=== PATIENT | male | born 1955 ===

== ENCOUNTER 2017-06-08 07:50 | Day surgery (SDC) | payer SELFPAY ==
[2016-10-30 12:52] VITALS: BMI 27.1
--- NOTE | 2017-06-08 09:15 | CP.SDSHP ---
Same Day Surgery H & P - History Proposed Procedure: EGD with cryo Pre-Op Diagnosis: Dysplastic barretts - Previous Medical/Surgical History Previous Surgical History: EGD with cryo - Allergies Allergies: Allergies No Known Allergies Allergy (Verified 09/03/16 08:47) - Physical Exam General Appearance: nl Vital Signs: Vital Signs 06/08/17 08:53 Temperature 98.0 F Pulse Rate 88 Respiratory 20 Rate Blood Pressure 129/71 O2 Sat by Pulse 97 Oximetry Mental Status: Alert & Oriented x3 Neuro: WNL Heart: WNL Lungs: WNL GI: WNL - {Optional Preform as Required} Abdomen: WNL - Impression Impression: Barretts with dysplasia Pt. Evaluated Today:Candidate for Anesthesia & Procedure: Yes - Date & Time Date: 06/08/17 Time: 09:15 Short Stay Discharge - Short Stay Discharge Admitting Diagnosis/Reason for Visit: CAVAZOS'S ESOPHAGUS WITHOUT DYSPLASIA Disposition: HOME/ ROUTINE
[2017-06-08] MEDS ORDERED: Propofol 10 mg/ml Inj (20 ML) ONE ×2 (09:21)
[2017-06-08] MEDS ORDERED: Lactated Ringer's 500 ML IV SCH (09:30)
[2017-06-08] MEDS ORDERED: Midazolam 2 MG/2 ML VIAL ONE (09:42)
[2017-06-08] MEDS ORDERED: Lactated Ringer's 500 ML IV ONE (10:05)
[2017-06-08 10:50] VITALS: TEMP 97.7
[2017-06-08 16:00] VITALS: BP 132/81; PULSE 70; RESP 20; O2SAT 98
== END 2017-06-08 15:45 | disposition home or self-care (01) ==
LOC: C.ENDO 07:50
PROVIDERS: ATTEND Internal Medicine
DX: K22.70 Barrett's esophagus without dysplasia (principal); K29.70 Gastritis, unspecified, without bleeding; K44.9 Diaphragmatic hernia without obstruction or gangrene
CPT/HCPCS: 43243; 82948; J2250; J2704; J3010; J7120

== ENCOUNTER 2018-05-05 14:53 | Emergency (ER) | payer OTHER ==
[2018-05-05 14:53] VITALS: BMI 28.0
[2018-05-05] MEDS ORDERED: Sodium Chloride 0.9% 1,000 ML IV ONE (16:45)
[2018-05-05] MEDS ORDERED: Iohexol 240 (50 ml) PO STA (16:45)
--- NOTE | 2018-05-05 16:45 | C.PDOC ---
History Of Present Illness <Alana Melgar - Last Filed: 05/05/18 18:49> <Scooby Youngblood - Last Filed: 05/05/18 20:37> 62-year-old male with PMHx of Herrera's esophagus s/p EGD in 02/2018 presents to the ER complaining of intermittent abdominal pain over the past month and a half. Patient also notes his abdomen occasionally feels "hard" with questionable bloating. Last episode of pain and "hard abdomen" was this morning , currently patient reports improvement. Of note, patient recently had a colonoscopy with his GI specialist Dr. Bowen, showing polyps. Patient otherwise denies fever, chills, vomiting, weight loss, change in bowel habits, or urinary symptoms. (Alana Melgar) History Per: Patient History/Exam Limitations: no limitations Onset/Duration Of Symptoms: Intermittent Episodes Current Symptoms Are (Timing): Better Location Of Pain/Discomfort: LLQ <Alana Melgar - Last Filed: 05/05/18 18:49> <Scooby Youngblood - Last Filed: 05/05/18 20:37> Time Seen by Provider: 05/05/18 16:17 Chief Complaint (Nursing): Abdominal Pain Past Medical History Reviewed: Historical Data, Nursing Documentation, Vital Signs - Medical History PMH: Diabetes, Fractures (LEFT ANKLE), Gastritis, HTN, Hypercholesterolemia, Pneumonia Denies: Chronic Kidney Disease Other PMH: Herrera's esophagus Surgical History: Appendectomy, Endoscopy Denies: Pacemaker Family History: States: Unknown Family Hx - Social History Hx Tobacco Use: No Hx Alcohol Use: Yes (OCCASIONAL WINE) Hx Substance Use: No - Immunization History Hx Tetanus Toxoid Vaccination: No Hx Influenza Vaccination: Yes Hx Pneumococcal Vaccination: Yes <Alana Melgar - Last Filed: 05/05/18 18:49> Vital Signs: Last Vital Signs Temp 98.9 F 05/05/18 18:55 Pulse 66 05/05/18 18:55 Resp 18 05/05/18 18:55 BP 114/68 05/05/18 18:55 Pulse Ox 96 05/05/18 18:55 - [facility] Procedures CLOSED ENDOSCOPIC BIOPSY OF LARGE INTESTINE (10/18/14) ENDO RECTUM POLYPECTOMY (10/18/14) ENDOSC POLYPECTOMY OF LG INTEST (10/18/14) ENDOSCOPIC BIOPSY OF RECTUM (10/18/14) HEMORRHOID PROCEDURE NEC (08/10/14) Review Of Systems Except As Marked, All Systems Reviewed And Found Negative. Constitutional: Negative for: Fever, Chills, Weight loss Gastrointestinal: Positive for: Abdominal Pain. Negative for: Nausea, Vomiting , Diarrhea, Constipation, Other (rectal bleeding) Genitourinary: Negative for: Dysuria, Frequency, Incontinence <Alnaa Melgar - Last Filed: 05/05/18 18:49> Physical Exam - Physical Exam Appears: Non-toxic, No Acute Distress Skin: Normal Color, Warm Head: Atraumatic, Normacephalic Eye(s): bilateral: Normal Inspection, PERRL, EOMI Nose: Normal Oral Mucosa: Moist Neck: Normal ROM, Supple Chest: Symmetrical, No Deformity Cardiovascular: Rhythm Regular, No Murmur Respiratory: Normal Breath Sounds, No Accessory Muscle Use, Other (NARD) Gastrointestinal/Abdominal: Soft, Tenderness (mild LLQ tenderness), No Distention, No Guarding, No Rebound Back: Normal Inspection Extremity: Bilateral: Atraumatic, Normal Color And Temperature, Normal ROM Pulses: Left Dorsalis Pedis: Normal, Right Dorsalis Pedis: Normal Neurological/Psych: Oriented x3, Normal Speech, Normal Cranial Nerves Gait: Steady <Alana Melgar - Last Filed: 05/05/18 18:49> ED Course And Treatment - Laboratory Results Result Diagrams: 05/05/18 16:51 05/05/18 16:51 O2 Sat by Pulse Oximetry: 97 (RA) Pulse Ox Interpretation: Normal <Alana Melgar - Last Filed: 05/05/18 18:49> - Laboratory Results Result Diagrams: 05/05/18 16:51 05/05/18 16:51 Pulse Ox Interpretation: Normal Reevaluation Time: 20:32 Reassessment Condition: Improved <Scooby Youngblood - Last Filed: 05/05/18 20:37> Progress - Data Reviewed Data Reviewed: Lab, Diagnostic imaging, Old records <Alana Melgar - Last Filed: 05/05/18 18:49> <Scooby Youngblood - Last Filed: 05/05/18 20:37> - Re-Evaluation Re-evaluation Note: 05/05/18 18:30 APPEARS COMFORTABLE NAD. PENDING CT. (Alana Melgar) Medical Decision Making <RamónAlana - Last Filed: 05/05/18 18:49> <Scooby Youngblood - Last Filed: 05/05/18 20:37> Medical Decision Making: Initial Impression: 62 y/o M with Abdominal Pain Time: 16:45 Initial Plan: --Blood work --Urinalysis --IV fluids --CT A/P with PO & IV contrast (Alana Melgar) Upon provider reevaluation patient is feeling better, is medically stable, and requires no further treatment in the ED at this time. Patient will be discharged home with Rx for flagyl . Counseling was provided and all questions were answered regarding diagnosis and need for follow up with the referred clinic. There is agreement to discharge plan. Return if symptoms persist or worsen. (Scooby Youngblood) Disposition - Disposition Disposition Time: 19:00 <Alana Melgar - Last Filed: 05/05/18 18:49> Counseled Patient/Family Regarding: Studies Performed, Diagnosis, Need For Followup, Rx Given <Scooby Youngblood - Last Filed: 05/05/18 20:37> - Disposition Referrals: [facility] at [facility] [Outside] [facility] [Outside] Disposition: HOME/ ROUTINE Condition: FAIR Additional Instructions: Please return if symptoms recur. Will also need a repeat scan in 3 years for your 3 cm infrarenal aortic aneurysm Prescriptions: Metronidazole [Flagyl] 500 mg PO TID #21 tablet Instructions: Acute Abdomen (Belly Pain), Adult (DC), Abdominal Hernia (DC), Aortic Aneurysm (DC) Forms: [facility] (Icelandic) - Clinical Impression Clinical Impression: Abdominal pain, Ventral hernia, Aneurysm of infrarenal abdominal aorta - Scribe Statement The provider has reviewed the documentation as recorded by the Scribe <Alana Melgar - Last Filed: 05/05/18 18:49> <Scooby Youngblood - Last Filed: 05/05/18 20:37> - Scribe Statement Beth Ortega (Alana Melgar) Provider Attestation: All medical record entries made by the Scribe were at my direction and personally dictated by me. I have reviewed the chart and agree that the record accurately reflects my personal performance of the history, physical exam, medical decision making, and the department course for this patient. I have also personally directed, reviewed, and agree with the discharge instructions and disposition. (Alana Melgar) Physician Patient Turnover Patient Signed Over To: Scooby Youngblood Handoff Comments: fu ct, dispo <Alana Melgar - Last Filed: 05/05/18 18:49> Addendum <Alana Melgar - Last Filed: 05/05/18 18:49> <Scooby Youngblood - Last Filed: 05/05/18 20:37> Addendum: 05/05/18 20:30 Name: GUILLERMO ZHENG Age: 62Years M Date: 05/05/2018 Requesting Physician: Alana Melgar : 1955 [employer] Procedure Ordered As Accession Number of Images CT ABDOMEN/PELVIS W CT ABD PELVIS PO IV CONTRAST [id number] J 531 Provided Clinical History: abd pain LLQ EXAM: CT Abdomen and Pelvis With Intravenous Contrast CLINICAL HISTORY: 62 years old, male; Pain; Abdominal pain; Flank; Left lower quadrant (llq); Additional info: Abd pain llq TECHNIQUE: Axial computed tomography images of the abdomen and pelvis with intravenous contrast. All CT scans at this facility use at least one of these dose optimization techniques: automated exposure control; mA and/or kV adjustment per patient size (includes targeted exams where dose is matched to clinical indication); or iterative reconstruction. Coronal and sagittal reformatted images were created and reviewed. CONTRAST: 100 mL of visipaque 320 administered intravenously. COMPARISON: No relevant prior studies available. FINDINGS: Lung bases: Centrilobular emphysema. Bullous changes. Dependent microatelectasis. Heart: Coronary and faint valvular calcifications. Mediastinum: Small hiatal hernia ABDOMEN: Liver: There is hepatomegaly and fatty infiltration of the liver. Gallbladder and bile ducts: Unremarkable. No calcified stones. No ductal dilation. Pancreas: Unremarkable. No mass. No ductal dilation. Spleen: Unremarkable. No splenomegaly. Adrenals: Unremarkable. No mass. Kidneys and ureters: No hydronephrosis or differential renal nephrogram. Stomach and bowel: There is a small lateral ventral hernia anterior pelvic body wall containing mesenteric fat there were tears component of a diverticulum of the descending colon. There is mild lesional pericolonic induration at this level and just distally. Short segment 3 cm luminal narrowing rectosigmoid colon is likely due to peristalsis. There is a moderate benign duodenal diverticulum. Scattered diverticula. No obstruction. No mucosal thickening. PELVIS: Appendix: No findings to suggest acute appendicitis. Bladder: Unremarkable. No mass. Reproductive: Prominent prostate ABDOMEN and PELVIS: Intraperitoneal space: Unremarkable. No free air. No significant fluid collection. Bones/joints: No acute fracture. No dislocation. Soft tissues: See above. Vasculature: Extensive atheromatous changes of an ectatic aorta, and branch vessels. There is a 3 cm fusiform infrarenal abdominal aortic aneurysm. Aneurysm spans 4 cm and originates approximately 8.5 cm distal to the renal arteries. Lymph nodes: Unremarkable. No enlarged lymph nodes. IMPRESSION: There is a left lateral ventral hernia in the pelvis containing fat and a Raza's component/diverticulum off the descending colon associated with inflammatory changes. Component of incarceration or diverticulitis is possible. Arteriopath. 3 cm infrarenal abdominal aortic aneurysm Men's aneurysm Surveillance Aneurysm Size cm Recommended Interval 2.5-2.9 5 years 3.0-3.4 3 years 3.5-3.9 2 years 4.0-4.4 1 year 4.5-4.9 6 months 5.0-5.5 Consult for intervation, q3-[address] findings above. Thank you for allowing us to participate in the care of your patient. Dictated and Authenticated by: Oriana Smart MD 05/05/2018 8:10 PM Eastern Time ([place] & [place]) (Scooby Youngblood)
[2018-05-05 16:56] LABS: BASO # 0.1 K/uL (0.0-0.2); BASO % 0.9 % (0.0-2.0); EOS # 0.4 K/uL (0.0-0.7); EOS % 4.3 % (0.0-4.0); HEMOGLOBIN 16.2 g/dL (12.0-18.0); LYMPH # 1.2 K/uL (1.0-4.3); LYMPH % 13.3 % (20.0-40.0); MEAN CELL VOLUME 90.1 fL (80.0-94.0); MEAN CORPUSCULAR HEMOGLOBIN 30.1 pg (27.0-31.0); MEAN CORPUSCULAR HGB CONC 33.4 g/dL (33.0-37.0); MEAN PLATELET VOLUME 8.4 fL (7.2-11.7); MONO # 0.6 K/uL (0.0-0.8); MONO % 7.2 % (0.0-10.0); NEUT # 6.6 K/uL (1.8-7.0); NEUT % 74.3 % (50.0-75.0); NRBC % 0.1 % (0.0-2.0); RBC 5.4 Mil/uL (4.40-5.90); RED CELL DISTRIBUTION WIDTH 13.7 % (11.5-14.5)
[2018-05-05 16:59] LABS: SQUAMOUS EPITHIAL < 1 /hpf (0-5); URINE BILIRUBIN NEGATIVE (NEGATIVE); URINE BLOOD NEGATIVE (NEGATIVE); URINE CLARITY Hazy (Clear); URINE GLUCOSE (UA) 1+ mg/dL (Normal); URINE LEUKOCYTE ESTERASE TRACE Leu/uL (Negative); URINE PROTEIN 1+ mg/dL (NEGATIVE); URINE UROBILINOGEN NORMAL mg/dL (0.2-1.0)
[2018-05-05 17:03] LABS: URINE COLOR YELLOW (YELLOW)
[2018-05-05 17:07] LABS: ALB/GLOB RATIO 1.4 (1.0-2.1); ALBUMIN 4.6 g/dL (3.5-5.0); ALT/SGPT 32 U/L (21-72); AST/SGOT 21 U/L (17-59); BLOOD UREA NITROGEN 25 mg/dL (9-20); CALCIUM 8.8 mg/dl (8.6-10.4); GFR AFRICAN-AMERICAN > 60; GFR NON-AFRICAN AMERICAN 56; LIPASE 150 U/L (23-300)
[2018-05-05] MEDS ORDERED: Sodium Chloride 0.9% 1,000 ML ONE (17:22)
[2018-05-05] MEDS ORDERED: Iohexol 240 (50 ml) ONE (17:22)
[2018-05-05] MEDS ORDERED: Iodixanol 320 MG/ML 100 ML BOTTLE IV ONE (18:06)
[2018-05-05 20:50] VITALS: BP 130/75; PULSE 69; RESP 20; TEMP 97.8; O2SAT 98
--- NOTE | 2018-05-06 10:49 | CT ---
Date of service: 05/05/2018 PROCEDURE: CT Abdomen and Pelvis with contrast HISTORY: abd pain LLQ COMPARISON: None. TECHNIQUE: Contrast dose: 100 mL Visipaque 320 Radiation dose: Total exam DLP = 647.9 mGy-cm. This CT exam was performed using one or more of the following dose reduction techniques: Automated exposure control, adjustment of the mA and/or kV according to patient size, and/or use of iterative reconstruction technique. FINDINGS: LOWER THORAX: Diffuse emphysematous changes. Bullous changes. Heart size normal. LIVER: Hepatic steatosis. No gross lesion or ductal dilatation. GALLBLADDER AND BILE DUCTS: Unremarkable. PANCREAS: Unremarkable. No gross lesion or ductal dilatation. SPLEEN: Unremarkable. ADRENALS: Unremarkable. No mass. KIDNEYS AND URETERS: Unremarkable. No hydronephrosis. No solid mass. VASCULATURE: Infrarenal abdominal aortic aneurysm measuring up to 3.0 cm. BOWEL: Left lateral ventral hernia with mild protrusion of a portion of descending colon through the hernia neck and mild associated thickening/inflammatory change. No obstruction. No gross mural thickening. APPENDIX: No findings to suggest acute appendicitis. PERITONEUM: Unremarkable. No free fluid. No free air. LYMPH NODES: Unremarkable. No enlarged lymph nodes. BLADDER: Unremarkable. REPRODUCTIVE: Unremarkable. BONES: No acute fracture. OTHER FINDINGS: None. IMPRESSION: Left lateral ventral hernia with mild protrusion of a portion of descending colon with mild associated thickening/inflammatory change. Infrarenal abdominal aortic aneurysm measuring up to 3.0 cm.
== END 2018-05-05 20:50 | disposition home or self-care (01) ==
LOC: C.ER 14:53
DX: K43.9 Ventral hernia without obstruction or gangrene (principal); I71.4 Abdominal aortic aneurysm, without rupture; R10.32 Left lower quadrant pain
CPT/HCPCS: 74177; 80053; 81001; 83690; 85025; 96360; 99285; J7030; Q9966; Q9967

== ENCOUNTER 2018-05-13 10:26 | Emergency (ER) | payer OTHER ==
[2018-05-13 10:26] VITALS: BMI 28.0
[2018-05-13 10:45] VITALS: BP 114/73; PULSE 99; RESP 20; TEMP 98.3; O2SAT 95
--- NOTE | 2018-05-13 10:55 | C.PDOC ---
History Of Present Illness 62 y/o male presents to the ER for evaluation of a generalized rash which began yesterday. Patient states that he was evaluated for abdominal pain in [place] ER and he was discharged with prescription for Flagyl. Patient also states that he was seen by his PMD and he was prescribed Ciprofloxacin. He notes that he is having an allergic reaction with the medications as he noticed an itchy rash yesterday. Denies having fever, chills, CP, and SOB. Time Seen by Provider: 05/13/18 10:39 Chief Complaint (Nursing): Allergic Reaction History Per: Patient History/Exam Limitations: no limitations Onset/Duration Of Symptoms: Days Current Symptoms Are (Timing): Still Present Severity: Moderate Past Medical History Reviewed: Historical Data, Nursing Documentation, Vital Signs Vital Signs: Last Vital Signs Temp 98.3 F 05/13/18 10:40 Pulse 99 H 05/13/18 10:40 Resp 20 05/13/18 10:40 BP 114/73 05/13/18 10:40 Pulse Ox 95 05/13/18 11:17 - Medical History PMH: Diabetes, Fractures (LEFT ANKLE), Gastritis, HTN, Hypercholesterolemia, Pneumonia Denies: Chronic Kidney Disease Surgical History: Appendectomy, Endoscopy Denies: Pacemaker - [facility] Procedures CLOSED ENDOSCOPIC BIOPSY OF LARGE INTESTINE (10/18/14) ENDO RECTUM POLYPECTOMY (10/18/14) ENDOSC POLYPECTOMY OF LG INTEST (10/18/14) ENDOSCOPIC BIOPSY OF RECTUM (10/18/14) HEMORRHOID PROCEDURE NEC (08/10/14) Family History: States: No Known Family Hx - Social History Hx Tobacco Use: No Hx Alcohol Use: Yes (OCCASIONAL WINE) Hx Substance Use: No - Immunization History Hx Tetanus Toxoid Vaccination: No Hx Influenza Vaccination: Yes Hx Pneumococcal Vaccination: Yes Review Of Systems Except As Marked, All Systems Reviewed And Found Negative. Constitutional: Negative for: Fever, Chills Cardiovascular: Negative for: Chest Pain Skin: Positive for: Rash Physical Exam - Physical Exam Skin: Normal Color, Warm, Dry, Rash (urticaria - bilateral antecubital fossa, chest, and back) Head: Atraumatic, Normacephalic Eye(s): bilateral: Normal Inspection Nose: Normal Oral Mucosa: Moist Throat: Normal, No Erythema, No Exudate Neck: Supple Chest: Symmetrical Cardiovascular: Rhythm Regular Respiratory: Normal Breath Sounds, No Rales, No Rhonchi, No Wheezing Neurological/Psych: Oriented x3, Normal Speech ED Course And Treatment O2 Sat by Pulse Oximetry: 95 (RA) Pulse Ox Interpretation: Normal Medical Decision Making Medical Decision Making: Impression: Allergic Urticaria Progress: Patient has been discharged with prescription for Benadryl and told to follow up in clinic. Disposition Counseled Patient/Family Regarding: Diagnosis, Need For Followup, Rx Given - Disposition Referrals: [facility] at [facility] [Outside] Disposition: HOME/ ROUTINE Disposition Time: 10:58 Condition: STABLE Additional Instructions: Don't take Benadryl if you are driving or working. Prescriptions: DiphenhydrAMINE [Benadryl] 50 mg PO TID #12 cap Instructions: Drug Allergy Forms: Gen Discharge Inst Montenegrin - Clinical Impression Clinical Impression: Allergic urticaria - Scribe Statement The provider has reviewed the documentation as recorded by the Loi [employer] Provider Attestation: All medical record entries made by the Lauraibclarice were at my direction and personally dictated by me. I have reviewed the chart and agree that the record accurately reflects my personal performance of the history, physical exam, medical decision making, and the department course for this patient. I have also personally directed, reviewed, and agree with the discharge instructions and disposition.
== END 2018-05-13 11:05 | disposition home or self-care (01) ==
LOC: C.ER 10:26
DX: L50.0 Allergic urticaria (principal)

== ENCOUNTER 2018-05-19 08:52 | Emergency (ER) | payer OTHER ==
[2018-05-19 08:52] VITALS: BMI 28.0
[2018-05-19 09:03] VITALS: BP 141/84; PULSE 84; RESP 16; TEMP 98.4; O2SAT 98
--- NOTE | 2018-05-19 09:25 | C.PDOC ---
History Of Present Illness 62 year old male presents to the ED for evaluation of a non-itchy rash to his legs which began yesterday. Patient states he was started on Flagyl two weeks ago, and he developed an itchy rash immediately after taking it. He was seen in this ED on 05/13 for this rash (on his chest and back). Symptoms resolved after he was given Benadryl. Patient is also asking to be placed back on Amaryl, stating he used to take the medication for DM but was taken off of it during a prior admission. Patient states since being taken off his medication, his sugars have been higher. He denies fever, chills, cough, shortness of breath, itchiness, bleeding or bruising. Time Seen by Provider: 05/19/18 09:05 Chief Complaint (Nursing): Abnormal Skin Integrity History Per: Patient History/Exam Limitations: no limitations Onset/Duration Of Symptoms: Hrs Current Symptoms Are (Timing): Still Present Location Of Injury: Right: Leg, Left: Leg Quality Of Symptoms: denies: Itching Additional History Per: Patient Past Medical History Reviewed: Historical Data, Nursing Documentation, Vital Signs Vital Signs: Last Vital Signs Temp 98.4 F 05/19/18 09:01 Pulse 84 05/19/18 09:01 Resp 16 05/19/18 09:01 BP 141/84 05/19/18 09:01 Pulse Ox 98 05/19/18 14:27 - Medical History PMH: Diabetes, Fractures (LEFT ANKLE), Gastritis, HTN, Hypercholesterolemia, Pneumonia Denies: Chronic Kidney Disease Surgical History: Appendectomy, Endoscopy Denies: Pacemaker - [facility] Procedures CLOSED ENDOSCOPIC BIOPSY OF LARGE INTESTINE (10/18/14) ENDO RECTUM POLYPECTOMY (10/18/14) ENDOSC POLYPECTOMY OF LG INTEST (10/18/14) ENDOSCOPIC BIOPSY OF RECTUM (10/18/14) HEMORRHOID PROCEDURE NEC (08/10/14) Family History: States: No Known Family Hx - Social History Hx Tobacco Use: No Hx Alcohol Use: Yes (OCCASIONAL WINE) Hx Substance Use: No - Immunization History Hx Tetanus Toxoid Vaccination: No Hx Influenza Vaccination: Yes Hx Pneumococcal Vaccination: Yes Review Of Systems Constitutional: Negative for: Fever, Chills Cardiovascular: Negative for: Chest Pain, Palpitations Respiratory: Negative for: Cough, Shortness of Breath Gastrointestinal: Negative for: Nausea, Vomiting, Abdominal Pain Skin: Positive for: Rash (to bilateral legs ) Physical Exam - Physical Exam Appears: Well, Non-toxic, No Acute Distress Skin: Rash (petechial rash on bilateral lower extremities ) Head: Normacephalic Eye(s): bilateral: Normal Inspection Oral Mucosa: Moist Throat: Normal, No Erythema, No Exudate Neck: Supple Cardiovascular: Rhythm Regular Respiratory: Normal Breath Sounds, No Rales, No Rhonchi, No Wheezing, Other ( speaking in full sentences ) Gastrointestinal/Abdominal: Normal Exam, Bowel Sounds, Soft, No Tenderness Extremity: Normal ROM, No Tenderness, No Pedal Edema, No Calf Tenderness Extremity: Bilateral: Atraumatic, Normal ROM Pulses: Left Dorsalis Pedis: Normal, Right Dorsalis Pedis: Normal Neurological/Psych: Oriented x3 ED Course And Treatment O2 Sat by Pulse Oximetry: 98 (on RA) Pulse Ox Interpretation: Normal Progress Note: Patient given Rx for Amaryl. He has asymptomatic currently other than petecchial rash on legs. Patiet instructed to follow up with medical clinic in 1-2 days for further evaluation. Patient understands he should return to ED if symptoms worsen. Disposition Counseled Patient/Family Regarding: Diagnosis, Need For Followup, Rx Given - Disposition Referrals: [facility] at [facility] [Outside] Disposition: HOME/ ROUTINE Disposition Time: 09:25 Condition: STABLE Additional Instructions: FOLLOW UP IN THE MEDICAL CLINIC FOR FURTHER TESTING/EVALUATION OF YOUR LEG RASH CONTINUE YOUR DIABETIC MEDICATIONS AND START AMARYL AGAIN MAKE SURE YOU ARE CHECKING BLOOD SUGARS REGULARLY, AND IF THEY ARE LOW STOP AMARYL RETURN TO ER IF SYMPTOMS WORSEN Prescriptions: Glimepiride [amaRYL] 4 mg PO DAILY #7 tab Instructions: Skin Rash (DC) Forms: General Discharge Instructions, [facility] (Greek) Print Language: CAMEROONIAN - Clinical Impression Clinical Impression: Medication refill, Rash, Petechial rash - Scribe Statement The provider has reviewed the documentation as recorded by the Scribe (Radha Hartmann) Provider Attestation: All medical record entries made by the Scribe were at my direction and personally dictated by me. I have reviewed the chart and agree that the record accurately reflects my personal performance of the history, physical exam, medical decision making, and the department course for this patient. I have also personally directed, reviewed, and agree with the discharge instructions and disposition.
== END 2018-05-19 09:49 | disposition home or self-care (01) ==
LOC: C.ER 08:52
DX: Z76.0 Encounter for issue of repeat prescription (principal); R23.3 Spontaneous ecchymoses